=== PATIENT | male | born 1985 | race American Indian/Alaskan Native ===

== ENCOUNTER 2017-12-14 20:38 | Emergency (ER) | payer SELFPAY ==
[2017-12-14] MEDS ORDERED: TYLENOL ONE (21:22)
[2017-12-14] MEDS ORDERED: TYLENOL PO ONE (21:26)
[2017-12-15 09:01] VITALS: BP 121/92
[2017-12-15] MEDS ORDERED: TORADOL IM ONE (09:33)
--- NOTE | 2017-12-15 09:51 | Emergency Department Report ---
ED Neck Pain/Injury HPI - General Chief Complaint: Neck Pain/Injury Stated Complaint: NECK PAIN Time Seen by Provider: 12/15/17 09:11 Mode of arrival: Ambulatory Limitations: No Limitations - History of Present Illness Initial Comments: Patient is a 32-year-old -[place] male who states yesterday morning he woke up with neck stiffness. Patient states it hurts when he turns his head from [id number]. He is holding his head in flexion states this is just the most comfort. Patient states the pain is bilateral paraspinal extending into the trapezius. Patient states that it's aching pain is 8 out of 10 in severity. Patient states noted times a most times entire body. Patient denies any trauma fevers chills cough cold congestion. Patient states when he swallows it makes his neck hurt. - Related Data Previous Rx's Medication Instructions Recorded Last Taken Type Ibuprofen [Motrin] 600 mg PO Q8H PRN #15 tablet 09/06/13 Unknown Rx HYDROcodone/APAP 5-325 [[place] 1 each PO Q6HR PRN #15 tablet 12/15/17 Unknown Rx 5/325] Ibuprofen [Motrin] 800 mg PO Q8HR PRN #20 tablet 12/15/17 Unknown Rx methOCARBAMOL [Robaxin TAB] 500 mg PO Q6H PRN #15 tablet 12/15/17 Unknown Rx Allergies Allergy/AdvReac Type Severity Reaction Status Date / Time No Known Allergies Allergy Unverified 09/06/13 13:25 ED Review of Systems ROS: Stated complaint: NECK PAIN Other details as noted in HPI Comment: All other systems reviewed and negative ED Past Medical Hx - Past Medical History Previous Medical History?: No - Surgical History Past Surgical History?: No - Social History Smoking Status: Never Smoker Substance Use Type: None - Medications Home Medications: Home Medications Medication Instructions Recorded Confirmed Last Taken Type Ibuprofen [Motrin] 600 mg PO Q8H PRN #15 tablet 09/06/13 Unknown Rx HYDROcodone/APAP 5-325 [[place] 1 each PO Q6HR PRN #15 tablet 12/15/17 Unknown Rx 5/325] Ibuprofen [Motrin] 800 mg PO Q8HR PRN #20 tablet 12/15/17 Unknown Rx methOCARBAMOL [Robaxin TAB] 500 mg PO Q6H PRN #15 tablet 12/15/17 Unknown Rx ED Physical Exam - General Limitations: No Limitations General appearance: alert, in no apparent distress - Head Head exam: Present: atraumatic, normocephalic - Eye Eye exam: Present: normal appearance - ENT ENT exam: Present: mucous membranes moist - Neck Neck exam: Present: normal inspection, tenderness (patient has generalized tenderness to the paraspinal regions of the C-spine.), full ROM (patient has full range of motion however it is painful). Absent: meningismus, lymphadenopathy, thyromegaly - Respiratory Respiratory exam: Present: normal lung sounds bilaterally. Absent: respiratory distress - Cardiovascular Cardiovascular Exam: Present: regular rate, normal rhythm. Absent: systolic murmur, diastolic murmur, rubs, gallop - GI/Abdominal GI/Abdominal exam: Present: soft, normal bowel sounds - Rectal Rectal exam: Present: deferred - Extremities Exam Extremities exam: Present: normal inspection - Back Exam Back exam: Present: normal inspection - Neurological Exam Neurological exam: Present: alert, oriented X3 - Psychiatric Psychiatric exam: Present: normal affect, normal mood - Skin Skin exam: Present: warm, dry, intact, normal color. Absent: rash ED Course Vital Signs 12/14/17 12/14/17 12/15/17 21:19 21:27 05:57 Temperature 98.0 F 97.8 F Pulse Rate 86 60 Respiratory 18 18 16 Rate Blood Pressure 135/79 124/78 Blood Pressure [Right] O2 Sat by Pulse 100 97 Oximetry 12/15/17 09:00 Temperature 98.3 F Pulse Rate 59 L Respiratory 18 Rate Blood Pressure Blood Pressure 121/92 [Right] O2 Sat by Pulse 100 Oximetry ED Medical Decision Making - Medical Decision Making Patient will be treated for torticollis at this time. Patient was told return if he develops any fevers or nausea vomiting. Critical care attestation.: If time is entered above; I have spent that time in minutes in the direct care of this critically ill patient, excluding procedure time. ED Disposition Clinical Impression: Torticollis Disposition: DC-01 TO HOME OR SELFCARE Is pt being admited?: No Does the pt Need Aspirin: No Condition: Stable Instructions: Spasmodic Torticollis (ED) Additional Instructions: Please return to the emergency department if he develops fevers Referrals: PRIMARY CARE, [Primary Care Provider] - 3-5 Days
== END 2017-12-15 10:07 | disposition home or self-care (01) ==
LOC: ED 20:38
DX: M43.6 Torticollis (principal)
CPT/HCPCS: 99282; J1885